=== PATIENT | male | born 1985 | race Caucasian/White ===

== ENCOUNTER 2023-01-22 12:31 | Emergency (ER) | payer OTHER, SELFPAY ==
--- NOTE | ~2023-01-22 | CT_ITS ---
EXAMINATION: CT abdomen pelvis w con DATE: 01/22/2023 13:58 INDICATION: Lower abdominal pain TECHNIQUE: Computed tomography (CT) of the abdomen and pelvis was performed with 100 CC Omnipaque 350 intravenous contrast. Automated exposure control and iterative reconstruction technique were employe d. Exam dose: 198.45 mGy-cm total exam DLP. COMPARISON: None. FINDINGS: There is minimal bilateral lower lobe dependent atelectasis. Normal heart size. No pericardial or pleural effusion. The liver, gallbladder, bile ducts, pancreas, pancreatic duct, spleen, and adrenal glands are unremar kable. Several small right renal cysts, the largest approximately 8 mm. The kidneys are otherwise unremarkab le. No urinary tract calculus or hydroureteronephrosis. The urinary bladder and prostate gland are un remarkable. Normal caliber of the abdominal aorta. No intraperitoneal or retroperitoneal or pelvic mass lesion or adenopathy or ascites. Normal appendix. There is a prominent amount of fecal material in the colon, particularly right colon . No bowel obstruction, bowel wall thickening, pneumatosis or intraperitoneal free air is detected. No suspicious osteolytic or osteoblastic lesions. Moderate degenerative disc disease at L4-5 and L5-S 1 mild degenerative spurring in the lower thoracic spine. IMPRESSION: Normal appendix; no bowel obstruction or free air Small right renal cysts Reviewed, dictated and finalized at [facility]. Reviewed, dictated and finalized at [facility].
[2023-01-22 12:33] VITALS: BP 114/74; PULSE 62; RESP 18; TEMP 36.4; O2SAT 100
[2023-01-22 13:04] VITALS: BP 108/77; PULSE 63
[2023-01-22 13:10] LABS: Basophils Absolute Auto 0.1 K/mm3 (0.0-0.1); Basophils Percent Auto 0.8 % (0.2-1.2); Eosinophils Absolute Auto 0.3 K/mm3 (0-0.3); Eosinophils Percent Auto 4.2 % (0-4.4); Hematocrit 43.9 % (42.0-52.0); Hemoglobin 15.1 g/dL (14.0-18.0); Immature Granulocyte Absolute 0.02 K/mm3 (0.00-0.031); Immature Granulocyte Percent A 0.3 % (0-0.5); Lymphocytes Percent Auto 30.7 % (18.3-44.2); Mean Corpuscular HGB Conc 34.4 g/dl (32-36); Mean Corpuscular Hemoglobin 33.3 pg (26-34); Mean Corpuscular Volume 96.9 fl (80-100); Mean Platelet Volume 8.7 fl (7.4-10.4); Monocytes Absolute Auto 0.5 K/mm3 (0.1-0.6); Monocytes Percent Auto 8.3 % (2.6-8.5); Neutrophils Absolute Auto 3.4 K/mm3 (1.3-6.7); Neutrophils Percent Auto 55.7 % (45.5-73.1); Platelet Count Result 206 k/mm3 (150-375); Red Blood Count 4.53 M/mm3 (4.6-6.20); Red Cell Distribution Width 12.4 % (11.5-14.5); White Blood Count 6.2 K/mm3 (4.5-10.0)
[2023-01-22 13:20] LABS: Prothrombin Time 12.8 Seconds (11.1-14.7)
[2023-01-22 13:21] LABS: Alanine Aminotransferase 29 U/L (6-50); Albumin Level 4.3 g/dL (3.5-5.1); Alkaline Phosphatase 54 U/L (38-126); Anion Gap 4 mmol/L (8-16); Aspartate Amino Transferase 24 U/L (17-59); Bilirubin,Total 0.7 mg/dL (0.2-1.3); Blood Urea Nitrogen 17 mg/dL (9-20); Calcium 9.2 mg/dL (8.4-10.2); Carbon Dioxide 30 mmol/L (22-30); Chloride 105 mmol/L (98-107); Estimated CRCL calculation 84 ml/min; Estimated Glomerular Filt Rate > 60; Glucose 86 mg/dL (65-110); Partial Thromboplastin Time 28.3 SECONDS (22.3-36.8); Sodium 139 mmol/L (137-145)
--- NOTE | 2023-01-22 13:40 | ED.GENADULT ---
HPI - General Adult General Chief complaint: GI Bleed Stated complaint: rectal bleeding Time Seen by Provider: 01/22/23 12:38 History of Present Illness HPI narrative: 77-year-old male presented to the emergency department for evaluation of lower abdominal pressure and rectal prolapse. Patient states over the last few months he has had blood on the toilet paper when he wipes. He states yesterday he was bearing down hard for a bowel movement and describes rectal prolapse. Patient states he had to reduce his rectum with his finger. Review of Systems Review of Systems: All systems reviewed & are unremarkable except as noted in HPI and below Exam Narrative: APPEARANCE: Well appearing, no pain, no distress, well-nourished. HEAD: normocephalic, atraumatic. EYES: PERRLA/EOMI, conjunctivae clear. NOSE: Normal no drainage NECK: Supple. No adenopathy, no masses. RESPIRATORY: Airway patent, respirations nonlabored. Clear to auscultation bilaterally, no rales, rhonchi, wheezing. CARDIOVASCULAR: Regular rate and rhythm without murmurs rubs or gallops. ABDOMINAL: Soft, nontender, nondistended, normal bowel sounds MUSCULOSKELETAL: Moves all extremities. Strength/ROM intact, No edema, No calf tenderness. Digital rectal exam: Rectum is not prolapsed, Hemoccult negative NEURO: Alert. Cranial nerves II through XII intact. Intact SKIN: Warm, dry. Normal Color Course Course Emergency Course: 37-year-old male presented to the emergency department for evaluation of possible rectal prolapse and constipation. Patient was Hemoccult negative from below and had no external hemorrhoids. Patient was not prolapse on exam. Patient is afebrile with no leukocytosis and his hemoglobin is 15.1. Patient has a normal INR and patient's CMP is within normal limits. CT abdomen pelvis was ordered to evaluate for intra-abdominal pathology or constipation. CT scan showed normal appendix and no evidence of colitis or free air. Patient and family were updated on the results of the labs and imaging. Patient was encouraged to decrease his MiraLAX intake to assist with his constipation. Patient was also encouraged of close follow-up with GI. All questions concerns were addressed and patient was well-appearing at time of discharge. Vital Signs Vital signs: Vital Signs Temperature 97.6 F 01/22/23 12:33 Pulse Rate 62 01/22/23 12:33 Respiratory Rate 18 01/22/23 12:33 Blood Pressure 114/74 01/22/23 12:33 Pulse Oximetry 100 01/22/23 12:33 Oxygen Delivery Room Air 01/22/23 12:33 Temperature 97.6 F 01/22/23 12:33 Pulse Rate 77 01/22/23 15:15 Respiratory Rate 12 01/22/23 15:15 Blood Pressure 111/82 01/22/23 15:15 Pulse Oximetry 97 01/22/23 15:15 Oxygen Delivery Room Air 01/22/23 12:33 Medical Decision Making Vital Signs Vital Signs: Vital Signs Temperature 97.6 F 01/22/23 12:33 Pulse Rate 62 01/22/23 12:33 Respiratory Rate 18 01/22/23 12:33 Blood Pressure 114/74 01/22/23 12:33 Pulse Oximetry 100 01/22/23 12:33 Oxygen Delivery Room Air 01/22/23 12:33 Temperature 97.6 F 01/22/23 12:33 Pulse Rate 77 01/22/23 15:15 Respiratory Rate 12 01/22/23 15:15 Blood Pressure 111/82 01/22/23 15:15 Pulse Oximetry 97 01/22/23 15:15 Oxygen Delivery Room Air 01/22/23 12:33 Lab Data Lab results reviewed: Yes I reviewed the patient's lab results. 01/22/23 13:03 01/22/23 13:03 Labs: Lab Results 01/22/23 01/22/23 01/22/23 Range/Units 13:03 13:03 13:03 WBC 6.2 (4.5-10.0) K/mm3 RBC 4.53 L (4.6-6.20) M/mm3 Hgb 15.1 (14.0-18.0) g/dL Hct 43.9 (42.0-52.0) % MCV 96.9 (80-100) fl MCH 33.3 (26-34) pg MCHC 34.4 (32-36) g/dl RDW 12.4 (11.5-14.5) % Plt Count 206 (150-375) k/mm3 MPV 8.7 (7.4-10.4) fl Immature Gran % (Auto) 0.3 (0-0.5) % Neut % (Auto) 55.7 (45.5-73.1) % Lymph % (Auto) 30.7 (18.3-44.2) % [place] %
[2023-01-22 15:15] VITALS: BP 111/82; PULSE 77; RESP 12; O2SAT 97
== END 2023-01-22 15:22 | disposition home or self-care (01) ==
PROVIDERS: Emergency Provider Emergency Medicine
DX: K62.3 Rectal prolapse (principal); K59.00 Constipation, unspecified; K64.9 Unspecified hemorrhoids
CPT/HCPCS: 36415; 74177; 80053; 85025; 85610; 85730; 86850; 86900; 86901; 99284; Q9967

== ENCOUNTER 2023-07-07 18:17 | Emergency (ER) | payer OTHER, SELFPAY ==
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
[2023-07-07 18:20] VITALS: BP 99/68; PULSE 66; RESP 15; TEMP 36.7; O2SAT 100
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
[2023-07-07] MEDS: ACETAMINOPHEN 500 MG TABLET 1000 MG PO (20:58)
[2023-07-07] MEDS: predniSONE 20 MG TABLET 40 MG PO (20:58)
[2023-07-07] MEDS: KETOROLAC 30 MG/ML VIAL (*BKC) 15 MG IM (20:59)
[2023-07-07 21:09] LABS: Appearance Urine Clear (Clear); Bilirubin Urine Negative (Negative); Blood Urine Negative (Negative); Color Urine Yellow (Yellow); Glucose Urine UA Negative (Negative); Ketones Urine Negative (Negative); Leukocyte Esterase Ur Negative LEU/UL (Negative); Nitrate Urine Negative (Negative); Protein Urine Negative (Negative); Specific Grav Ur 1.008 (1.001-1.035); Urobilinogen Urine 0.2 mg/dL (<2.0); pH Urine 6.5 (5.0-9.0)
[2023-07-07 21:12] LABS: Add Urine Microscopic? NO
== END 2023-07-07 22:33 | disposition home or self-care (01) ==
PROVIDERS: Emergency Provider Student in an Organized Health Care Education/Training Program
DX: S32.058A Other fracture of fifth lumbar vertebra, initial encounter for closed fracture (principal); M62.838 Other muscle spasm; V03.00XA Pedestrian on foot injured in collision with car, pick-up truck or van in nontraffic accident, initial encounter
CPT/HCPCS: 72131; 72192; 81003; 96372; 99284; A9270; J1885; J7512

== ENCOUNTER 2025-08-26 14:39 | Emergency (ER) | payer SELFPAY ==
--- OUTSIDE RECORDS SUMMARY | 2011-11-12 07:30 | XMS_ITS | Continuity of Care Document ---
Author Organization [facility] Address [address] [place] [address] Phone Care Team Providers Care Energy Assistant Name Role Phone Unavailable Unavailable Unavailable Medications Medication Instructions Dosage Effective Dates (start - stop) Status Comments Vicodin 5 mg-500 mg Tab take 1 tablet by oral route every 4 - 6 hours as needed for pain - Active amoxicillin 500 mg Cap take 1 capsule (500MG) by ORAL route every 8 hours 500 MG - Active amoxicillin 500 mg Cap take 1 capsule (500MG) by ORAL route 3 times every day for 10 days 500 MG - Active Vicodin 5 mg-500 mg Tab take 1 tablet by ORAL route every 4 - 6 hours as needed for pain - Active Vicodin 5 mg-500 mg Tab take 1 tablet by ORAL route every 4 - 6 hours as needed for pain - Active amoxicillin 500 mg Cap take 1 capsule (500MG) by ORAL route 3 times every day for 10 days 500 MG - Active Procedures Procedure Date Extraction erupted tooth or exposed root Extraction erupted tooth or exposed root Extraction erupted tooth or exposed root Extraction erupted tooth or exposed root Extraction erupted tooth or exposed root Limit oral eval problem focused 012 Periapical first film Extraction erupted tooth or exposed root Extraction erupted tooth or exposed root Extraction erupted tooth or exposed root Extraction erupted tooth or exposed root Extraction erupted tooth or exposed root Limit oral eval problem focused 010 Extraction erupted tooth or exposed root Extraction erupted tooth or exposed root Extraction erupted tooth or exposed root Extraction erupted tooth or exposed root Extraction erupted tooth or exposed root Extraction erupted tooth or exposed root Limit oral eval problem focused 010 Advance Directives Directive Yes / No Effective Date File Name No Information Encounters Encounter Description Practice Location Reason(s) For Visit Diagnoses Date Provider Providers Copied on Encounter [facility] , [address], [place], [place], [id number], tel:[phone] Dental [facility] Dental examination No Information [facility] , [address], [place], [place], [id number], [place] tel:[phone] Dental [facility] Davis No Information No Information [facility] , [address], [place], [place], [address], tel:[phone] Dental [facility] No Information No Information Family History Family Member Type Diagnosis Age At Onset No Information Payers Payer name Insurance type Covered libertarian ID Authoriza tion(s) No Information Social History Type Description Quantity Date Captured Comments Sex Male Smoking Status No Information Chief Complaint And Reason For Visit No Information Reason For Referral Reason For Referral No Information History Of Present Illness Encounter Date Complaint History Of Prese nt Illness No Information Functional Status Date Functional Assessmen t No Information Instructions Date Instruction Additional Infor mation No Information Assessments Type Assessment Date No Information Patient Care Teams Name Effective Dates (start - stop) Status Members No Information
[2025-08-26 14:39] VITALS: RESP 16
[2025-08-26 14:41] VITALS: BP 139/95; PULSE 76; RESP 16; TEMP 36.4; O2SAT 100
--- OUTSIDE RECORDS SUMMARY | 2025-08-26 14:41 | XMS_ITS | Data Portability ---
Author Organization [place] [facility] [employer], Main Office Address [address] [place] [address] Assessment No assessment recorded. Plan of Treatment Reminders Order Date Submit Date Provider Last Modified By Organization Details Last Modified Time Details Appointments None recorded. Lab CBC w/ auto diff [address] (Lab), [address] [place], [address], 3 10:10:52 lipid panel, serum [address] (Lab), [address] [place], [address], 3 10:11:18 glycohemogl obin, total, blood [address] (Lab), [address] [place], [address], 3 10:11:27 CMP, serum or plasma [address] (Lab), [address] [place], [address], 3 10:11:39 TSH, serum or plasma [address] (Lab), [address] [place], [address], 3 10:11:52 urinalysis, complete [address] (Lab), [address] [place], [address], 3 10:12:24 PSA, serum or plasma [address] (Lab), [address] [place], [address], 3 10:12:35 CT + NG DNA, PCR, urine [address] (Lab), [address] [place], [address], 3 07:55:43 HIV (1+2) antibodies, EIA, serum, reflex HIV-1 western blot (WB) [address] (Lab), [address] [place], [address], 3 07:55:43 Referral None recorded. Procedures None recorded. Surgeries None recorded. Imaging None recorded. Medication Orders nicotine (polacrilex ) 2 mg gum 2022 023 [facility], [facility] [place], [address], 3 09:59:27 bupropion HCl SR 150 mg tablet,12 hr sustained-r elease 2022 023 [facility], [facility] [place], [address], 3 11:21:41 albuterol sulfate HFA 90 mcg/actuati on aerosol inhaler 2022 023 [facility], [facility] [place], [address], 3 09:59:26 Anusol-HC 25 mg rectal suppository 2022 023 [facility], [address] [facility], [place], [address], 3 09:59:30 Miralax 17 gram/dose oral powder 2022 023 [facility], [address] [facility], [place], [address], 3 09:59:28 Patient TargetsNo targets recorded. Patient InstructionsNo instructions recorded. Reason for Referral None Reported. Results Created Date Observation Date Name Description Value Unit Range Abnormal Flag Note LastModifiedBy Organization Detail LastModifiedTime Result Notes None recorded. Problems Name Problem SNOMED Code Status Onset Date Resolution Date Notes Provider Name and Address Organization Details Recorded Time Asthma 781428813 Active 2022 Sommer Marte CMA null, [employer] 3 09:25:14 Hemorrhoids 53889291 Active 2022 REMI Lindsey [address], [facility] [address], [address], [employer] 3 09:37:57 Nicotine dependence 46472928 Active 2022 REMI Lindsey [address], [place] [address], [address], [employer] 3 09:47:34 Urinary tract infectious disease 49106805 Active 2022 REMI Lindsey [address], [facility] [address], [place], [address], [employer] 3 14:08:47 Problem Notes None recorded. Medical Equipment None Reported. Allergies No known drug allergies Medications Name Sig Start Date Stop Date Status Note LastModified by Organization Details LastModified Time bupropion HCl SR 150 mg tablet,12 hr sustained-re lease TAKE 1 TABLET BY MOUTH TWICE DAILY active Not Available Not Available No t Available nicotine (polacrilex) 2 mg gum Chew 1 piece of gum every 2 hours by oral route as needed for 30 days. active Not Available Not Available No t Available Anucort-HC 25 mg suppository Insert by rectal route for 14 days. active Not Available Not Available No t Available Macrobid 100 mg capsule Take 1 capsule every 12 hours by oral route for 5 days. 2022 active Not Available Not Available Not Avai lable polyethylene glycol 3350 17 gram/dose oral powder DISOLVE 17 GRAMS IN 8 OZ OF LIQUID AND DRINK DAILY active Not Available Not Available Not Available albuterol sulfate HFA 90 mcg/actuatio n aerosol inhaler INHALE 2 PUFFS BY MOUTH EVERY 4 HOURS active Not Available Not Available No t Available albuterol 90 mcg-budesoni de 80 mcg/actuatio n HFA aerosol inhaler Inhale by inhalation route. active Not Available Not Available No t Available Vitals Date Recorded Body weight Body temperature Heart rate Oxygen saturation Oxygen saturation in Arterial blood by Pulse oximetry Systolic And Diastolic Provider Name and Address Organization Details Last Updated DateTime 3 [address]4894.6 4 g 97.2 [degF] 83 /min 98 % 98 % 132/76 mm[Hg] Sommer Marte CMA [employer] 09:24:48 Social History Question Answer Notes LastModified by [employer] Details LastModified Time Tobacco Smoking Status Former Smoker Sommer Marte CMA null, [employer] 05/18/2023 09:26:13 What Is Your Level Of Caffeine Consumption? Occasional [email or web address] Information not available 05/18/2023 Which Illicit Or Recreational Drugs Have You Used? [place] Information not available 05/18/2023 When Did You Quit Smoking? 1-5yearssincel juani [email or web address] Information not available 05/18/2023 Have You Ever Been Counseled For Unhealthy Alcohol Use? No [email or web address] Information not available 05/18/2023 Has Tobacco Cessation Counseling Been Provided? No [email or web address] Information not available 05/18/2023 Have You Used IV Drugs? No Information not available 05/18/2023 Sex: Unknown Functional Status Question Answer Note LastModified by Organizat ion Details LastModified Time Do you use any illicit or recreational drugs? Yes weed [email or web address] Information not available 05/18/2023 Do you or have you ever used any other forms of tobacco or nicotine? No Information not available 05/18/2023 What is your level of alcohol consumption? Occasional [email or web address] Information not available 05/18/2023 Mental Status None recorded. Family History Relationship Description Onset Age of this Age Resolved Age Notes LastModified by Organization Details LastModified Time Father Congestive heart failure [email or web address] Not available 2022 09:26:56 Medical History No medical history recorded. Past Encounters Encounter ID Performer Location Encounter Start Date Encounter Closed Date Diagnosis/Indication Diagnosis SNOMED-CT Code Diagnosis ICD10 Code Diagnosis IMO Codes Diagnosis Note [id number] REMI Lindsey [facility] Yasmine hale [address] [facility] [address] [place] [address] 05/18/2023 09:19:08 05/18/2023 10:08:32 Adult health examination 978804409 Z00.00 Encouraged fresh fruits and veggiesInc rease water intakeExer cise dailyWould like STD testing but is currently asymptomat ic Hemorrhoids 17558992 K64 .9 Has been more of an issue in the last couple months. Will trial anusol supp Asthma 398921721 J45.90 9 stable. Nicotine dependence 5629 4008 F17.200 Pt will try to stop smoking when he picks up the prescripti onDeclines patchesWil l trial nicotine gum and Buproprion Health Concerns Section Related Observation LastModified by Organization Detai ls LastModified Time None Recorded Concern Status LastModified by Organization Details LastModified Time None Recorded Advance Directives Directive None Recorded Payers Insurance Date Sequence Insurance Name Policy Number Policy [place] Covered Member ID [place] Member ID Guarantor Name 06/19/2023 1 [employer] (PPO) [id number] Nj Burkett [id number] Nj Burkett Notes Date Note Type Note Provider Name and Address Organization Details Recorded Time 05/18/2023 text/html 1. Pt is here to establish care with new provider. Would like to get bloodwork checked. Notes a while back going to hospital for hemorrhoids. Sometimes they protrude and he has to manually reduce them. Sometimes notes blood when he wipes, but not in his stool. BM 2-3 times/day, does not feel like he is having an adequate BM each time 2. Smokes 1/2ppd. Would like to discuss options for quitting JOSSY Lindsey-Marisel [address], [facility] [address], [place], [address], [place] [facility] [employer] [facility] 05/18/2023 12:32:06
--- NOTE | 2025-08-26 17:22 | ED_ITS ---
HPI - General Adult General Chief complaint: Unspecified Stated complaint: ball sticking out of my butt Time Seen by Provider: 08/26/25 16:57 History of Present Illness HPI narrative: 39-year-old male history of constipation presents emergency department for evaluation for hemorrhoid pain. Related Data Allergies Allergy/AdvReac Type Severity Reaction Status Date / Time No Known Allergies Allergy Verified 08/26/25 14:42 Review of Systems Review of Systems: All systems reviewed & are unremarkable except as noted in HPI and below Exam Narrative: APPEARANCE: Well appearing, no pain, no distress, well-nourished. HEAD: normocephalic, atraumatic. EYES: PERRLA/EOMI, conjunctivae clear. NOSE: Normal no drainage EARS:TMS clear with good light reflex. THROAT: Pharynx clear, no exudate. NECK: Supple. No adenopathy, no masses. RESPIRATORY: Airway patent, respirations nonlabored. Clear to auscultation bilaterally, no rales, rhonchi, wheezing. CARDIOVASCULAR: Regular rate and rhythm without murmurs rubs or gallops. ABDOMINAL: Soft, nontender, nondistended, normal bowel sounds MUSCULOSKELETAL: Moves all extremities. Strength/ROM intact, No edema, No calf tenderness. NEURO: Alert. Cranial nerves II through XII intact. Good gait. Good coordination SKIN: Warm, dry. Normal Color Rectal exam: Non thrombosed external hemorrhoid Course Vital Signs Vital signs: Vital Signs Respiratory Rate 16 08/26/25 14:39 Oxygen Delivery Room Air 08/26/25 14:39 Temperature 97.5 F L 08/26/25 14:41 Pulse Rate 72 08/26/25 17:32 Respiratory Rate 17 08/26/25 17:32 Blood Pressure 140/92 H 08/26/25 17:32 Pulse Oximetry 99 08/26/25 17:32 Oxygen Delivery Room Air 08/26/25 14:39 Medical Decision Making [facility] Narrative Medical decision making narrative: 39-year-old male presents emergency department for evaluation for hemorrhoid pain. Patient does have a nonthrombosed external hemorrhoid. Patient was educated on hemorrhoid treatment for home and was provided outpatient follow-up with surgery. Patient was well-appearing and in no distress at time of evaluation at and at time of discharge. Differential Diagnosis Differential Diagnosis: Hemorrhoid, anal fissure, thrombosed hemorrhoid Vital Signs Vital Signs: Vital Signs Respiratory Rate 16 08/26/25 14:39 Oxygen Delivery Room Air 08/26/25 14:39 Temperature 97.5 F L 08/26/25 14:41 Pulse Rate 72 08/26/25 17:32 Respiratory Rate 17 08/26/25 17:32 Blood Pressure 140/92 H 08/26/25 17:32 Pulse Oximetry 99 08/26/25 17:32 Oxygen Delivery Room Air 08/26/25 14:39 Discharge Plan Discharge Clinical Impression: Hemorrhoids Qualifiers: Hemorrhoid type: unspecified Qualified Code(s): K64.9 - Unspecified hemorrhoids Constipation Qualifiers: Constipation type: unspecified constipation type Qualified Code(s): K59.00 - Constipation, unspecified Patient Disposition: Home Condition: Stable Instructions: Antibiotic Form, Hemorrhoids (ED) Additional Instructions: Drink plenty water. [id number] preparation H as directed. MiraLax to help soften your stool. Have close follow-up with surgery. If you have any worsening symptoms please call or return to the emergency department. Patient Language: Tamaz[place] Prescriptions: No Action cyclobenzaprine 5 mg tablet 5 mg PO TID PRN (Reason: muscle spasm) Qty: 20 0RF ibuprofen 400 mg tablet 400 mg PO Q6H PRN (Reason: pain) Qty: 30 0RF acetaminophen 500 mg tablet 500 mg PO Q6H PRN (Reason: pain) Qty: 30 0RF Follow-up/Referrals: Lauren Reyes MD [Physician, General Surgery] PHYSICIAN,SEAFOOD PREPARER [Primary Care Provider, Internal Medicine] Stand Alone Forms: Work/School Release IP
[2025-08-26 17:32] VITALS: BP 140/92; PULSE 72; RESP 17; O2SAT 99
== END 2025-08-26 17:34 | disposition home or self-care (01) ==
PROVIDERS: Emergency Provider Emergency Medicine
DX: K64.9 Unspecified hemorrhoids (principal); K59.00 Constipation, unspecified
CPT/HCPCS: 99281